=== PATIENT | female | born 1945 | race Two or more races ===

== ENCOUNTER 2017-03-07 14:04 | Inpatient (IN) | payer MEDICARE, OTHER ==
[~2017-03-07] VITALS: Ht 152.4 cm; Wt 63.5 kg
[2017-03-07 21:00] VITALS: BP 118/97
[2017-03-07] MEDS ORDERED: DIPH25CA83 PO ×2 (23:52)
[2017-03-07] MEDS ORDERED: CLON1PAT30 TD (23:52)
[2017-03-07] MEDS ORDERED: BISA-79 RC (23:52)
[2017-03-07] MEDS ORDERED: MAGN2PIG IV (23:52)
[2017-03-07] MEDS ORDERED: CLON0.1T PO (23:52)
[2017-03-07] MEDS ORDERED: IPRA0.2S6 NEB (23:52)
[2017-03-07] MEDS ORDERED: DOCU100C36 PO (23:52)
[2017-03-07] MEDS ORDERED: MORP2CAR IV (23:52)
[2017-03-07] MEDS ORDERED: NITR0.4T48 SL (23:52)
[2017-03-07] MEDS ORDERED: [UNRECOGNIZED DRUG - CODE] PO (23:52)
[2017-03-07] MEDS ORDERED: ALBU2.5V38 IH (23:52)
[2017-03-07] MEDS ORDERED: FURO40TA5 PO (23:52)
[2017-03-07] MEDS ORDERED: TRAZ-144 PO (23:52)
[2017-03-07] MEDS ORDERED: MORP15TA PO ×2 (23:52)
[2017-03-07] MEDS ORDERED: DULO60CA45 PO (23:52)
[2017-03-07] MEDS ORDERED: CLIN300C11 PO (23:52)
[2017-03-07] MEDS ORDERED: APIX5TAB PO (23:52)
[2017-03-07] MEDS ORDERED: DILT120C2 PO (23:52)
[2017-03-07] MEDS ORDERED: MAGN4PIG3 IV (23:52)
[2017-03-07] MEDS ORDERED: GLUC1VIA4 IJ (23:52)
[2017-03-07] MEDS ORDERED: ONDA4TAB5 IVP (23:52)
[2017-03-07] MEDS ORDERED: LEVO75TA7 PO (23:52)
[2017-03-07] MEDS ORDERED: DEXT50DI8 IV (23:52)
[2017-03-07] MEDS ORDERED: TEMA7.5C PO (23:59)
[2017-03-08] MEDS ORDERED: MORPHINE SULFATE IR 30 MG TABLET PO PRN ×2 (00:15→00:30)
[2017-03-08] MEDS ORDERED: MORPHINE SULFATE IR 30 MG TABLET ONE (00:33)
--- NOTE | 2017-03-08 00:47 | NUR ---
RN NOTES: 03/07/17, 20:45 PATIENT RECEIVED FROM [facility], ALERT, ORIENTED TIMES 4. PATIENT DENIES ANY PAIN. NO ACUTE CARDIAC OR RESPIRATORY DISTRESS NOTED. FALL PRECAUTIONS ARE IMPLEMENTED. PHYSICAL ASSESSMENT IS DONE. 03/07/17, 22:30 CALLED AND ORDERED TO CONTINUE HOME MEDS. CHARGE NURSE IS AWARE. WILL CARRY OUT THE ORDERS AND CONTINUE TO MONITOR.
[2017-03-08] MEDS ORDERED: MORPHINE SULFATE 2 MG/1 ML DISP.SYRIN IV PRN (02:15)
[2017-03-08] MEDS ORDERED: MORPHINE SULFATE 2 MG/1 ML DISP.SYRIN ONE (02:31)
[2017-03-08] MEDS ORDERED: MORPHINE SULFATE 4 MG/1 ML DISP.SYRIN IV PRN (08:45)
[2017-03-08 09:33] VITALS: BP 124/71
--- NOTE | 2017-03-08 12:06 | NUR ---
Information Security SW met with patient at [facility] to assess pt needs and provide support. The patient is a 71 year old female who was admitted for sharp hip pain after bending over. The patient recently had total knee replacement surgery. The patient was laying in her bed during the assessment. She was calm and cooperative during the interview. The patient's mood was somewhat depressed. The patient stated that she has not been able to sleep well and and that her appetite has not been so good. Per pt, she lives with her daughter Geovanna Acevedo [[id number] [place] [address]]. The patient acknowledged her condition and the need for intervention. The patient stated that she has strong social support from her children. She stated that her emergency contact is her daughter Geovanna Acevedo . Social history: The patient stated that she was born and raised in [place], [place]. She stated that she was primarily raised by her mother since her parents were . The patient stated that she was for 25 years and got many years ago. 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 She stated that she had to retire 15 years ago due to her severe back pain. The patient reported having a history of cancer in 1997. The patient denied any history of abuse or domestic violence. The patient denied any history of drug or alcohol abuse. The patient stated that she would like to return home with her daughter in [place] upon discharge. SW engaged in active listening and provided supportive counseling during the interview to address patient's depressive symptoms related to her decline in functioning. SW will continue to address issues of loss related to recent hospitalization. SW will encourage compliance with rehab goals. SW will be available as needed.
[2017-03-08] MEDS: FUROSEMIDE 40 MG TABLET PO SCH (14:00)
[2017-03-08] MEDS ORDERED: IPRATROPIUM BROMIDE 0.5 MG/2.5 ML NEBU NEB PRN (14:00)
[2017-03-08] MEDS ORDERED: ONDANSETRON 4 MG/2 ML VIAL IV PRN (14:00)
[2017-03-08] MEDS ORDERED: NITROGLYCERIN 0.4 MG/TAB BOTTLE SL PRN (14:00)
[2017-03-08] MEDS ORDERED: TEMAZEPAM 7.5 MG CAPSULE PO PRN (14:00)
[2017-03-08] MEDS ORDERED: diphenhydrAMINE 25 MG CAP PO PRN (14:00)
[2017-03-08] MEDS ORDERED: DILTIAZEM HCL SR 60 MG CAP.SR.12H PO SCH (14:00)
[2017-03-08] MEDS ORDERED: GUAIFENESIN/DEXTROMETHORPHAN 5 ML UDC PO PRN (14:00)
[2017-03-08] MEDS: DULOXETINE 30 MG CAPSULE.DR PO SCH (14:22)
[2017-03-08] MEDS: DILTIAZEM HCL CD 120 MG CAP.SR.24H PO SCH (14:29)
[2017-03-08] MEDS: LEVOTHYROXINE SODIUM 75 MCG TABLET PO SCH (14:31)
[2017-03-08] MEDS: DOCUSATE SODIUM 100 MG CAPSULE PO SCH (14:31)
--- NOTE | 2017-03-08 15:15 | NUR ---
Team Conference Meeting 03/08/17
--- NOTE | 2017-03-08 15:33 | NUR ---
DAILY NOTE F/C D/C INTACT 700ML CLEAR YELLOW URINE BIRDIE WELL. IV HL D/C #27 DANISH YELLOW HUB BUTTERFLY. INTACT BIRDIE WELL PRESSURE APPLIED TO SITE TO STOP THE BLEEDING. ADVISED HER TO CALL FOR FIRST URINATION FOR ASSIST TO BR
[2017-03-08] MEDS ORDERED: APIXABAN 5 MG TABLET PO ONE (17:00)
[2017-03-08] MEDS ORDERED: OXYCODONE/APAP 5-325 MG TABLET PO PRN ×2 (17:15)
[2017-03-08] MEDS: TRAZODONE 50 MG TABLET PO SCH (20:16)
[2017-03-08] MEDS: MORPHINE SULFATE SR 30 MG TABLET.SA PO SCH (20:17)
[2017-03-08] MEDS ORDERED: MORPHINE SULFATE SR 30 MG TABLET.SA PO SCH (21:00)
[2017-03-08 22:00] VITALS: BP 140/70
[2017-03-09] MEDS: LEVOTHYROXINE SODIUM 75 MCG TABLET PO SCH (06:15)
[2017-03-09 07:46] LABS: ALANINE AMINOTRANSFERASE 16 U/L (14-59); ALKALINE PHOSPHATASE 148 U/L (50-136); ASPARTATE AMINOTRANSFERASE 22 U/L (15-37); BILIRUBIN,TOTAL 0.6 mg/dL (0.2-1.0); CARBON DIOXIDE 29 mmol/L (21-32); CHLORIDE 99 mmol/L (98-107); CREATININE 0.9 mg/dL (0.6-1.3); GLUCOSE 102 mg/dL (74-106); MAGNESIUM 2.4 mg/dL (1.8-2.4); PHOSPHOROUS 5.2 mg/dL (2.5-4.9); POTASSIUM 4.1 mmol/L (3.5-5.1); TOTAL PROTEIN, SERUM 8.5 g/dL (6.4-8.2); UREA NITROGEN, BLOOD 28 mg/dL (7-18)
[2017-03-09 07:51] VITALS: BP 107/61
--- NOTE | 2017-03-09 07:53 | NUR ---
PATIENT RECEIVED IN ROOM RESTING IN BED WITH EYES CLOSED IN ACUTE DISTRESS. RESPIRATIONS EVEN AND UNLABORED. SAFETY MAINTAINED. CALL LIGHT AT REACH.
[2017-03-09 08:23] LABS: BASOPHILS # (AUTO) 0.1 K/uL (0.0-8.0); BASOPHILS % (AUTO) 1.2 % (0.0-2.0); EOSINOPHILS # (AUTO) 0.2 K/uL (0.0-0.7); EOSINOPHILS % (AUTO) 2.1 % (0.0-7.0); HEMOGLOBIN 13.9 G/DL (12.0-16.0); LYMPHOCYTES # (AUTO) 2.3 K/UL (0.8-4.8); LYMPHOCYTES % (AUTO) 25.4 % (20.5-51.5); MEAN CORPUSCULAR HGB CONC 32 g/dL (32.0-37.0); MEAN CORPUSCULAR VOLUME 92.5 FL (81.0-99.0); MONOCYTES # (AUTO) 0.7 K/UL (0.1-1.30); MONOCYTES % (AUTO) 7.7 % (0.0-11.0); NEUTROPHILS # (AUTO) 5.6 K/UL (1.8-8.9); NEUTROPHILS % (AUTO) 63.6 % (38.5-71.5); PLATELET COUNT (AUTO) 255 K/UL (150-450); RED BLOOD CELL COUNT(AUTO) 4.65 MIL/UL (4.2-5.4); WHITE BLOOD COUNT (AUTO) 8.9 K/UL (4.0-11.2)
[2017-03-09] MEDS: DULOXETINE 30 MG CAPSULE.DR PO SCH (08:53)
[2017-03-09] MEDS: DOCUSATE SODIUM 100 MG CAPSULE PO SCH (08:54)
[2017-03-09] MEDS: MORPHINE SULFATE SR 30 MG TABLET.SA PO SCH ×2 (08:54→21:59)
[2017-03-09] MEDS: DILTIAZEM HCL CD 120 MG CAP.SR.24H PO SCH (08:55)
--- NOTE | 2017-03-09 09:37 | NUR ---
PATIENT PARTICIPATED WITH PT AND TOLERATED WELL.
[2017-03-09] MEDS: APIXABAN 5 MG TABLET PO SCH ×2 (11:22→17:08)
[2017-03-09] MEDS ORDERED: TEMAZEPAM 7.5 MG CAPSULE PO PRN (16:30)
[2017-03-09] MEDS ORDERED: GUAIFENESIN/D-METHORPHAN 10 ML UDC (DIABETIC FORMULA) PO PRN (16:30)
[2017-03-09] MEDS ORDERED: NITROGLYCERIN 0.4 MG/TAB BOTTLE SL SCH (16:30)
[2017-03-09] MEDS ORDERED: DEXTROSE 50% 50 ML DISP.SYRIN IV SCH ×2 (16:30)
[2017-03-09] MEDS ORDERED: IPRATROPIUM BROMIDE 0.5 MG/2.5 ML NEBU NEB SCH (16:30)
[2017-03-09] MEDS ORDERED: diphenhydrAMINE 25 MG CAP PO PRN ×2 (16:30)
[2017-03-09] MEDS ORDERED: GLUCAGON,HUMAN RECOMBINANT 1 MG VIAL IVP PRN (16:30)
[2017-03-09] MEDS ORDERED: ALBUTEROL SULFATE 2.5 MG/3 ML NEBU IH PRN (16:30)
[2017-03-09] MEDS ORDERED: MORPHINE SULFATE 2 MG/1 ML DISP.SYRIN IV PRN (16:30)
[2017-03-09] MEDS ORDERED: APIXABAN 5 MG TABLET PO SCH (17:00)
[2017-03-09] MEDS: CLINDAMYCIN HCL 300 MG CAPSULE PO SCH (17:08)
[2017-03-09] MEDS ORDERED: CLONIDINE HCL 0.1 MG TABLET PO SCH (18:00)
--- NOTE | 2017-03-09 18:50 | NUR ---
END OF SHIFT NOTE: PATIENT IN NO ACUTE DISTRESS THROUGHOUT SHIFT.PAIN MANAGED WITH MEDICATION PRESCRIBED. VSS. AMBULATES TO BATHROOM WITH STAND BY ASSIST AND FWW. NEEDS MET BY STAFF.
[2017-03-09] MEDS ORDERED: ONDANSETRON HCL 4 MG TABLET PO SCH (20:00)
[2017-03-09] MEDS ORDERED: MORPHINE SULFATE IR 30 MG TABLET PO SCH ×2 (20:00→21:00)
[2017-03-09 20:22] VITALS: BP 90/51
[2017-03-09] MEDS ORDERED: TRAZODONE 50 MG TABLET PO SCH (21:00)
[2017-03-09] MEDS: TRAZODONE 50 MG TABLET PO SCH (21:58)
[2017-03-10] MEDS: LEVOTHYROXINE SODIUM 75 MCG TABLET PO SCH (06:54)
[2017-03-10] MEDS ORDERED: LEVOTHYROXINE SODIUM 75 MCG TABLET PO SCH (07:30)
[2017-03-10 08:25] VITALS: BP 108/56
--- NOTE | 2017-03-10 08:40 | NUR ---
Patient pleasant and conversant. BRP indendantly, call light within reach, encouraged to call for assistance. Tolerating diet well. Co-operative with all P/T exercises. Observed sign above head of bed "NO BP/BLOOD DRAWS LEFT ARM" s/p left breast mastectomy in 1997. M.S. ER po scheduled Q12 hours for pain control. States does help. Will continue to monitor.
[2017-03-10] MEDS ORDERED: DILTIAZEM HCL CD 120 MG CAP.SR.24H PO SCH (09:00)
[2017-03-10] MEDS ORDERED: DULOXETINE 60 MG CAPSULE.DR PO SCH (09:00)
[2017-03-10] MEDS: BISACODYL 5 MG TABLET.DR PO SCH (09:00)
[2017-03-10] MEDS ORDERED: DOCUSATE SODIUM 100 MG CAPSULE PO SCH (09:00)
[2017-03-10] MEDS: DULOXETINE 30 MG CAPSULE.DR PO SCH (09:21)
[2017-03-10] MEDS: MORPHINE SULFATE SR 30 MG TABLET.SA PO SCH ×2 (09:22→20:53)
[2017-03-10] MEDS: DILTIAZEM HCL CD 120 MG CAP.SR.24H PO SCH (09:23)
[2017-03-10] MEDS: CLINDAMYCIN HCL 300 MG CAPSULE PO SCH ×2 (09:23→17:04)
[2017-03-10] MEDS: FUROSEMIDE 40 MG TABLET PO SCH (09:24)
[2017-03-10] MEDS: ELIQUIS PO SCH ×2 (09:24→17:04)
[2017-03-10] MEDS: DOCUSATE SODIUM 100 MG CAPSULE PO SCH (09:25)
--- NOTE | 2017-03-10 12:00 | NUR ---
Dr. Elbert Rahman making rounds, conversing with patient regarding possible discharge home on Monday.
--- NOTE | 2017-03-10 18:00 | NUR ---
Patient resting in bed, reading. Tolerating meals, eating approx 75%. Encouraged to drink lots of water. Denies any pain/discomfort at this time. All needs attended. Encouraged to call for any assistance, call light within reach.
[2017-03-10] MEDS: TRAZODONE 50 MG TABLET PO SCH (20:52)
[2017-03-10 21:23] VITALS: BP 102/57
[2017-03-11] MEDS: LEVOTHYROXINE SODIUM 75 MCG TABLET PO SCH (06:28)
--- NOTE | 2017-03-11 08:35 | NUR ---
Patient sitting at edge of bed eating breakfast. Pleasant and conversant. States pain/discomfort is always a 2/10, especially with activity. States P/T worked with her at 0730 this morning. Pateint stats feel much better, had shower and washed her hair yesterday. All needs attended. Encouraged to call for any assistance, call light within reach. Will continue to monitor for any changes in status.
[2017-03-11] MEDS: ELIQUIS PO SCH ×2 (08:50→16:59)
[2017-03-11] MEDS: DULOXETINE 30 MG CAPSULE.DR PO SCH (08:50)
[2017-03-11] MEDS: BISACODYL 5 MG TABLET.DR PO SCH (08:50)
[2017-03-11] MEDS: DOCUSATE SODIUM 100 MG CAPSULE PO SCH (08:50)
[2017-03-11] MEDS: DILTIAZEM HCL CD 120 MG CAP.SR.24H PO SCH (08:55)
[2017-03-11] MEDS: CLINDAMYCIN HCL 300 MG CAPSULE PO SCH ×2 (08:55→16:59)
[2017-03-11] MEDS: MORPHINE SULFATE SR 30 MG TABLET.SA PO SCH ×2 (08:55→20:40)
[2017-03-11] MEDS ORDERED: FUROSEMIDE 40 MG TABLET PO SCH (09:00)
[2017-03-11 09:08] VITALS: BP 125/56
--- NOTE | 2017-03-11 16:20 | NUR ---
Patient requested to talk to me regarding her discharge home. She stated Dr. Dixie Rahman was here a few minutes ago to talk to her. She stated that he told her that her discharge was up to the nurse and that she had to talk to Beth, Locomotive Electrician. I explained that it was not up to me as her nurse. I informed Dipesh Arrieta of the conversation. Meenakshi texted Beth with this info., who replied that patient had to stay until Monday when she could talk to her. I then explained this to patient and she agreed. Her concern was that her daughter is off work the weekends and was available to pick her up. Her daughter works weekdays and can't take any more time off from work to pick her up on a weekday. I explained to patient that this was not a problem, that she should discuss this with Beth on Monday. She verbalized understanding and agreed.
[2017-03-11 20:27] VITALS: BP 107/42
--- NOTE | 2017-03-11 20:32 | NUR ---
NSG: Patient Received resting in bed watching tv. Encouraged to drink lots of water.no c/o pain/discomfort at this time. All needs attended. instructed to call nurse for any assistance, call light within reach. continue monitoring for safety.
[2017-03-11] MEDS: TRAZODONE 50 MG TABLET PO SCH (20:40)
--- NOTE | 2017-03-11 22:27 | NUR ---
NSG: PATIENT STATED I HAVE MY OWN PORTABLE BI-PAP MACHINE . I WANTS TO USE IT. called and left message. distilled water provided per patient request. charge nurse made aware.
[2017-03-12] MEDS: LEVOTHYROXINE SODIUM 75 MCG TABLET PO SCH (06:05)
--- NOTE | 2017-03-12 06:19 | NUR ---
NSG: REMAIN CALM AND COOPERATIVE WITH CARE AND MEDS. PATIENT IN NO ACUTE DISTRESS THROUGHOUT SHIFT.PAIN MANAGED WITH MEDICATION PRESCRIBED. VSS. AMBULATES TO BATHROOM WITH STAND BY ASSIST AND CANE. NO C/O PAIN OR DISCOMFORT AT THIS TIME.
--- NOTE | 2017-03-12 08:00 | NUR ---
Received patient awake, alert, verbally responsive, coherent, afebrile, not in any form of acute distress. She denies any pain or discomfort at this time. Environmental check for safety done. Assisted to her needs. Call light placed within reach.
[2017-03-12 08:10] VITALS: BP 118/62
[2017-03-12] MEDS: FUROSEMIDE 40 MG TABLET PO SCH (08:44)
[2017-03-12] MEDS: DOCUSATE SODIUM 100 MG CAPSULE PO SCH (08:44)
[2017-03-12] MEDS: DULOXETINE 30 MG CAPSULE.DR PO SCH (08:45)
[2017-03-12] MEDS: BISACODYL 5 MG TABLET.DR PO SCH (08:45)
[2017-03-12] MEDS: CLINDAMYCIN HCL 300 MG CAPSULE PO SCH ×2 (08:45→17:54)
[2017-03-12] MEDS: ELIQUIS PO SCH ×2 (08:49→17:54)
[2017-03-12] MEDS: MORPHINE SULFATE SR 30 MG TABLET.SA PO SCH ×2 (08:49→22:27)
[2017-03-12] MEDS: DILTIAZEM HCL CD 120 MG CAP.SR.24H PO SCH (08:54)
[2017-03-12 19:38] VITALS: BP 116/60
[2017-03-12] MEDS: TRAZODONE 50 MG TABLET PO SCH (22:26)
[2017-03-13] MEDS: LEVOTHYROXINE SODIUM 75 MCG TABLET PO SCH (06:41)
[2017-03-13 08:00] VITALS: BP 100/67
[2017-03-13] MEDS: MORPHINE SULFATE SR 30 MG TABLET.SA PO SCH (08:57)
[2017-03-13] MEDS: DULOXETINE 30 MG CAPSULE.DR PO SCH (08:58)
[2017-03-13] MEDS: CLINDAMYCIN HCL 300 MG CAPSULE PO SCH (08:58)
[2017-03-13] MEDS: BISACODYL 5 MG TABLET.DR PO SCH (09:00)
[2017-03-13] MEDS: DOCUSATE SODIUM 100 MG CAPSULE PO SCH (09:00)
[2017-03-13] MEDS: ELIQUIS PO SCH (10:24)
[2017-03-13] MEDS: DILTIAZEM HCL CD 120 MG CAP.SR.24H PO SCH (10:24)
[2017-03-13 12:04] VITALS: BP 106/67
--- NOTE | 2017-03-13 16:22 | NUR ---
PT. EXPRESSED AT BEGINNING OF SHIFT THAT SHE WISHED TO GO HOME TODAY. PT. HAD P.T. AND O.T. THIS AM WITH GOOD TOLERANCE. GOOD APPETITE. VOIDING WELL. PT. DISCUSSED DISCHARGE WITH WASTE DUSTER AND RECEIVED D/C INSTRUCTINS FROM FEMI PALACIOS RN. [id number] PT. LEFT UNIT VIA [facility] WITH WITH ALL BELONGINGS ACCOMPAINED BY FAMILY. PT. WAS IN NO ACUTE DISTRESS, VSS AND OFFERED NO COMPLAINTS AT TIME OF DISCHARGE.
== END 2017-03-13 14:45 | disposition home health service (06) | DRG 560 ==
LOC: SA1 14:04
PROVIDERS: ADMIT Physical Medicine & Rehabilitation Pain Medicine; ATTEND Physical Medicine & Rehabilitation Pain Medicine
DX: T84.031A Mechanical loosening of internal left hip prosthetic joint, initial encounter (principal); M00.9 Pyogenic arthritis, unspecified; T84.54XA Infection and inflammatory reaction due to internal left knee prosthesis, initial encounter; G89.29 Other chronic pain; Z96.642 Presence of left artificial hip joint; Z96.652 Presence of left artificial knee joint; Z95.2 Presence of prosthetic heart valve; I48.91 Unspecified atrial fibrillation; F32.9 Major depressive disorder, single episode, unspecified; E03.9 Hypothyroidism, unspecified; D64.9 Anemia, unspecified; M19.90 Unspecified osteoarthritis, unspecified site; Z88.6 Allergy status to analgesic agent; Z88.1 Allergy status to other antibiotic agents; Z88.2 Allergy status to sulfonamides; Z91.048 Other nonmedicinal substance allergy status; C67.9 Malignant neoplasm of bladder, unspecified; M48.00 Spinal stenosis, site unspecified; M54.9 Dorsalgia, unspecified; R10.2 Pelvic and perineal pain; R31.9 Hematuria, unspecified; R53.1 Weakness; Y83.8 Other surgical procedures as the cause of abnormal reaction of the patient, or of later complication, without mention of misadventure at the time of the procedure; Y92.009 Unspecified place in unspecified non-institutional (private) residence as the place of occurrence of the external cause
CPT/HCPCS: 36415; 83735; 84100; 85025; 97110; 97112; 97116; 97161; 97530; 97535; A4663; J2270